=== PATIENT | female | born 1940 | race Caucasian/White ===

== ENCOUNTER 2019-05-02 10:04 | Outpatient (CLI) | payer MEDICARE ==
--- NOTE | 2019-05-02 11:25 | CT ---
CT ABDOMEN AND PELVIS WITH ORAL AND IV CONTRAST: HISTORY: Epigastric pain. COMPARISON: 09/11/2009. FINDINGS: The lung bases are clear. The liver, spleen, pancreas, adrenal glands, and kidneys are normal. The patient is post cholecystectomy and hysterectomy. No free air, free fluidk or lymphadenopathy is see n in the abdomen or pelvis. The small bowel loops are not abnormally dilated. There is sigmoid dive rticulosis without diverticulitis. There is no evidence of aneurysmal dilatation of the abdominal ao rta. Vascular calcifications are present. There are degenerative changes in the spine. IMPRESSION: Sigmoid diverticulosis. POS: [facility]
== END 2019-05-02 10:05 | disposition home or self-care (01) ==
LOC: BICCT 10:04
PROVIDERS: ATTEND Internal Medicine Gastroenterology
DX: K58.1 Irritable bowel syndrome with constipation (principal); R10.13 Epigastric pain; K57.30 Diverticulosis of large intestine without perforation or abscess without bleeding; Z80.9 Family history of malignant neoplasm, unspecified
CPT/HCPCS: 74177; 82565

== ENCOUNTER 2020-05-23 09:40 | Outpatient (CLI) | payer MEDICARE ==
--- NOTE | 2020-05-23 10:15 | ULT ---
ULTRASOUND ABDOMINAL AORTA: HISTORY: Screening for abdominal aortic aneurysm FINDINGS: The abdominal aortic measurements are as follows: Proximal: 1.7 x 1.8 cm Mid: 1.5 x 1.4 cm Distal: 1.4 x 1.5 cm IMPRESSION: No evidence of abdominal aortic aneurysm.
== END 2020-05-23 09:41 | disposition home or self-care (01) ==
LOC: BICULT 09:40
PROVIDERS: ATTEND Internal Medicine
DX: Z13.6 Encounter for screening for cardiovascular disorders (principal)
CPT/HCPCS: 76775

== ENCOUNTER 2021-06-16 | Outpatient (CLI) | payer MEDICARE | END 2021-06-16 13:30 | disposition home or self-care (01) | DX: S62.611K Displaced fracture of proximal phalanx of left index finger, subsequent encounter for fracture with nonunion (principal) ==